=== PATIENT | female | born 1970 | race African-American/Black ===

== ENCOUNTER → 2017-10-02 | Day surgery (SDC) | payer OTHER ==
[~2017-10-02] VITALS: Ht 160 cm; Wt 84.4 kg
[~2017-10-02] MED LIST: COLACE100 M1 PO; CYCLOBENZAPRINE5 M2 PO; HYDROCHLOROTHIA25 M1 PO; LOMOTIL 2.5-0.1 EACH PO; PERCOCET 5-3251 EACH PO; PRILOSEC OTC20 M1 PO; ZOFRAN ODT4 M1 SL
--- NOTE | 2017-10-02 05:46 | ED GI/GU/ABDOMINAL COMPLAINT ---
History of Present Illness General Chief Complaint: General Adult Stated Complaint: "ABD PAIN, +N+V+D" Source: patient Exam Limitations: no limitations Vital Signs & Intake/Output Vital Signs & Intake/Output Vital Signs Date Time Temp Pulse Resp B/P B/P Pulse O2 O2 Flow FiO2 Mean Ox Delivery Rate 10/02 0733 100.0 76 20 132/78 99 Room Air 10/02 0606 98 Room Air 10/02 0542 98.2 94 16 140/84 98 Room Air Room Air Triage Note: 47YO FEMALE TO TRIAGE W/CO ABD PAIN,N,V,D SINCE YESTERDAY AFTERNOON. Triage Nurses Notes Reviewed? yes ? N Is pt currently ? No Duration: day(s): Timing: recent history Quality/Severity: cramping Location: epigastric, generalized abdomen Radiation: no radiation Activities at Onset: eating Prior Abdominal Problems: none Modifying Factors: Worsens With: defecating, palpation, vomiting. Associated Symptoms: abdominal pain, diarrhea, nausea/vomiting HPI: 47 YO WOMAN in prior good health, h/o hypertension, presents with nausea, vomiting, diarrhea since yesterday afternoon. "I ate a roast beef sandwich and everything started after that." She notes no fever, chills, dysuria, chest pain, shortness of breath. She is otherwise well. (Zohaib MORENO,Zeferino Veliz) Allergies Coded Allergies: Penicillins (HIVES 10/02/17) Reconcile Medications Hydrochlorothiazide 25 MG TABLET 1 TAB PO DAILY WATER RETENTION (Reported) (Missy MORENO,Dinh Murphy) Past History Travel History Traveled to [place] past 21 day No Medical History Any Pertinent Medical History? see below for history Neurological: NONE EENT: NONE Cardiovascular: hypertension Respiratory: NONE Gastrointestinal: NONE Hepatic: NONE Renal: NONE Musculoskeletal: NONE Psychiatric: NONE Endocrine: NONE Blood Disorders: NONE Cancer(s): NONE Surgical History Surgical History: none Psychosocial History What is your primary language Mohawk Tobacco Use: Never used Family History Hx Contributory? No (Zohaib MORENO,Zeferino Veliz) Review of Systems Review of Systems Constitutional: Reports: no symptoms. EENTM: Reports: no symptoms. Respiratory: Reports: no symptoms. Cardiovascular: Reports: no symptoms. GI: Reports: no symptoms. Genitourinary: Reports: no symptoms. Musculoskeletal: Reports: no symptoms. Skin: Reports: no symptoms. Neurological/Psychological: Reports: no symptoms. Hematologic/Endocrine: Reports: no symptoms. Immunologic/Allergic: Reports: no symptoms. All Other Systems: Reviewed and Negative (Zohaib MORENO,Zeferino Veliz) Physical Exam Physical Exam General Appearance: well developed/nourished, mild distress Head: atraumatic, normal appearance Eyes: Bilateral: normal appearance. Ears, Nose, Throat, Mouth: hearing grossly normal, moist mucous membrane Neck: normal inspection, supple, full range of motion, normal alignment Respiratory: normal breath sounds, no respiratory distress, quiet respiration, lungs clear Cardiovascular: regular rate/rhythm, JVD, murmur Gastrointestinal: normal bowel sounds, soft, mild mid epigastric tenderness,RUQ TENDERNESS, RLQ TENDERNESS, no rebound. no guarding Back: normal inspection, normal range of motion Extremities: normal range of motion Neurologic/Psych: no motor/sensory deficits, awake, alert, oriented x 3 Skin: intact, normal color, warm/dry Core Measures ACS in differential dx? No Sepsis Present: No Sepsis Focused Exam Completed? No (Zohaib MORENO,Zeferino Veliz) Progress Differential Diagnosis: viral syndrome vs other. Plan of Care: Orders Procedure Date/time Status Patient Data 10/02 916 Active Code Status 10/02 916 Active Add-on Test (ER Only) 10/02 622 Active EKG 10/02 06 Active TROPONIN LEVEL 10/02 06 Complete LIPASE 10/02 0539 Complete HUMAN BETA HCG SCREEN 10/02 05 Complete COMPREHENSIVE METABOLIC PANEL 10/02 538 Complete CBC WITHOUT DIFFERENTIAL 10/02 538 Complete AMYLASE 10/[address] in observation 10/02 UNK Active Current Medications Sig/Cheryl Start time Last Medication Dose Stop Time Status Admin Morphine Sulfate 4 MG ONCE ONE 10/02 929 UNVr (Morphine) 10/02 09 Laboratory Tests 10/02/17 0608: Anion Gap 13, Estimated GFR > 60, BUN/Creatinine Ratio 21.7, Glucose 138 H, Calcium 9.9, Total Bilirubin 0.4, AST 16, ALT 28, Alkaline Phosphatase 72, Troponin I 0.01, Total Protein 7.5, Albumin 4.2, Globulin 3.3, Albumin/Globulin Ratio 1.3, Amylase 69, Lipase 140, Total Beta HCG NEGATIVE, CBC w Diff MAN DIFF ORDERED, RBC 4.32, MCV 73.7 L, MCH 23.9 L, RDW 16.8 H, MPV 8.9, Gran % 82.0 H, Lymphocytes % 12.1 L, Monocytes % 4.4, Eosinophils % 1.3, Basophils % 0.2, Absolute Granulocytes 8.8 H, Segmented Neutrophils 79 H, Absolute Lymphocytes 1.3, Lymphocytes 15 L, Monocytes 3, Absolute Monocytes 0.5, Eosinophils 3, Absolute Eosinophils 0.1, Absolute Basophils 0, Platelet Estimate ADEQUATE, Polychromasia 1+, Hypochromic-Microcytic 2+, Anisocytosis 1+, Microcytic Cells 1 +, Elliptocytes FEW, PUBS MCHC 32.4 L Diagnostic Imaging: Viewed by Me: CT Scan. Discussed w/RAD: CT Scan. Initial ED EKG: BIPHASIC P WAVE, NSR, NO ACUTE CHANGES. Hand-Off Endorsed To: Missy MORENO,Dinh Murphy Endorsed Time: 0700 Pending: CT, labs (Zohaib MORENO,Zeferino Veliz) Radiology Impression: PATIENT: SHAHNAZ MACHADO PRESENT AGE: 47 PATIENT ACCOUNT NO: [id number] : 70 LOCATION: [facility] ORDERING PHYSICIAN: Zeferino Penny MD SERVICE DATE: 10/02/17 EXAM TYPE: CAT - CT ABD & PELVIS W/O IV CONTRAS EXAMINATION: CT ABDOMEN AND PELVIS WITHOUT CONTRAST CLINICAL INFORMATION: Right lower quadrant, right upper quadrant, and mid epigastric pain COMPARISON: None TECHNIQUE: Multidetector volumetric imaging was performed from the superior aspect of the liver through the pubic symphysis. Sagittal and coronal reformatted images were obtained on the technologist's workstation. DLP: 599 mGy-cm FINDINGS: LUNG BASES: Mild right lower lobe atelectasis. Small hiatal hernia. LIVER, GALLBLADDER, AND BILIARY TREE: The unenhanced liver is normal in size, shape, and attenuation. No focal hepatic lesion or biliary ductal dilatation is present. The gallbladder is unremarkable with no evidence of radiopaque gallstones, gallbladder wall thickening, or obvious pericholecystic inflammatory changes. PANCREAS: Unremarkable. SPLEEN: Unremarkable. ADRENAL GLANDS: Unremarkable. KIDNEYS AND URETERS: The kidneys are normal in size, shape, and attenuation. There is a punctate calcification in the lower pole of the left kidney. No hydronephrosis or hydroureter. No perinephric stranding. BLADDER: Unremarkable. GASTROINTESTINAL TRACT: The small and large bowel are unremarkable. The appendix is positioned in the right mid abdomen and is enlarged with periappendiceal fat stranding and a small amount of adjacent free fluid. ABDOMINAL WALL: Tiny fat- containing umbilical hernia. LYMPH NODES: Unremarkable. VASCULAR: Scattered atherosclerotic calcifications of the common iliac arteries. The abdominal aorta is normal in caliber. PELVIC VISCERA: The uterus is enlarged extending up to the level of the umbilicus and is lobulated in contour suggestive of multiple fibroids. OSSEOUS STRUCTURES: Unremarkable. IMPRESSION: Findings compatible with acute appendicitis. The appendix is high in position in the right mid abdomen and is retrocecal. This critical result was discussed with Dr. Louis by telephone on 10/02/2017 7:36 AM and it was ascertained that the content and urgency of the report was understood at the time of direct communication. Small hiatal hernia. Punctate nonobstructive intrarenal calculus in the lower pole of the left kidney. Enlarged uterus with suggestion of multiple fibroids. DICTATED BY: Katelyn Peguero MD DATE/TIME DICTATED:10/02/17722 ANESTHESIOLOGIST/PHYSICIAN: NICKY DATE/TIME TRANSCRIBED:10/02/17722 CONFIDENTIAL, DO NOT COPY WITHOUT APPROPRIATE AUTHORIZATION. <Electronically signed in Other Vendor System> SIGNED BY: Katelyn Peguero MD 10/02/17 0753 (Missy MORENO,Dinh Murphy) Departure Departure Condition: Stable Referrals: Patient Has No Primary Care Dr (PCP/Family) Departure Forms: Customer Survey General Discharge Information Comments 10/02/17, 6:40AM... pt feeling somewhat better after supportive medications, but still with rlq, ruq, mid epigastric pain. pt merits ct scan, fluids. pt signed out to dr. louis at 7am. (Zohaib MORENO,Zeferino Veliz) Departure Disposition: STILL A PATIENT Clinical Impression Primary Impression: Appendicitis Secondary Impressions: Abdominal pain OR/GI Note Spoke With: Deep Lemus DO ED Treatment Decision: SHAHNAZ MACHADO requires urgent operative management or an emergent procedure that cannot be performed in the Emergency Room setting. Transport To: [facility] (Missy MORENO,Dinh Murphy) ED Attending Observation Initial Observation Note: I have seen and personally examined SHAHNAZ MACHADO on 10/02/17 at 0548. I agree with the current emergency department documentation. The disposition (admission or discharge) is uncertain at this time, she needs a period of observation for the following reason(s): The ED Nurse caring for this patient has been personally informed as to what the patient is being observed for. (Zohaib MORENO,Zeferino Veliz) Transport To: [facility] (Missy MORENO,Dinh Murphy) ED Attending Observation Initial Observation Note: I have seen and personally examined SHAHNAZ MACHADO on 10/02/17 at 0548. I agree with the current emergency department documentation. The disposition (admission or discharge) is uncertain at this time, she needs a period of observation for the following reason(s): The ED Nurse caring for this patient has been personally informed as to what the patient is being observed for. (Zohaib MORENO,Zeferino Veliz)
[2017-10-02 06:19] LABS: ABSOLUTE BASOPHIL COUNT 0 /CUMM (0.0-0.2); ABSOLUTE EOSINOPHIL COUNT 0.1 /CUMM (0.0-0.7); ABSOLUTE GRANULOCYTE CT 8.8 /CUMM (1.4-6.5); ABSOLUTE LYMPH COUNT 1.3 /CUMM (1.2-3.4); ABSOLUTE MONOCYTE COUNT 0.5 /CUMM (0.10-0.60); BASOPHIL % 0.2 % (0.0-2.0); EOSINOPHIL % 1.3 % (0-5); HEMATOCRIT 31.8 % (37-47); MEAN CORPUSCULAR HGB 23.9 PG (27.0-31.0); MEAN CORPUSCULAR HGB CONC 32.4 G/DL (33.0-37.0); MEAN CORPUSCULAR VOLUME 73.7 FL (81.0-99.0); MEAN PLATELET VOLUME 8.9 FL (7.4-10.4); PLATELET COUNT 416 /CUMM (130-400); RBC DISTRIBUTION WIDTH 16.8 % (11.5-14.5); RED BLOOD CELL CT 4.32 /CUMM (4.20-5.40); WHITE BLOOD CELL COUNT 10.7 /CUMM (4.8-10.8)
--- NOTE | 2017-10-02 07:57 | CT SCAN REPORT ---
EXAMINATION: CT ABDOMEN AND PELVIS WITHOUT CONTRAST CLINICAL INFORMATION: Right lower quadrant, right upper quadrant, and mid epigastric pain COMPARISON: None TECHNIQUE: Multidetector volumetric imaging was performed from the superior aspect of the liver through the pubic symphysis. Sagittal and coronal reformatted images were obtained on the technologist's workstation. DLP: 599 mGy-cm FINDINGS: LUNG BASES: Mild right lower lobe atelectasis. Small hiatal hernia. LIVER, GALLBLADDER, AND BILIARY TREE: The unenhanced liver is normal in size, shape, and attenuation. No focal hepatic lesion or biliary ductal dilatation is present. The gallbladder is unremarkable with no evidence of radiopaque gallstones, gallbladder wall thickening, or obvious pericholecystic inflammatory changes. PANCREAS: Unremarkable. SPLEEN: Unremarkable. ADRENAL GLANDS: Unremarkable. KIDNEYS AND URETERS: The kidneys are normal in size, shape, and attenuation. There is a punctate calcification in the lower pole of the left kidney. No hydronephrosis or hydroureter. No perinephric stranding. BLADDER: Unremarkable. GASTROINTESTINAL TRACT: The small and large bowel are unremarkable. The appendix is positioned in the right mid abdomen and is enlarged with periappendiceal fat stranding and a small amount of adjacent free fluid. ABDOMINAL WALL: Tiny fat-containing umbilical hernia. LYMPH NODES: Unremarkable. VASCULAR: Scattered atherosclerotic calcifications of the common iliac arteries. The abdominal aorta is normal in caliber. PELVIC VISCERA: The uterus is enlarged extending up to the level of the umbilicus and is lobulated in contour suggestive of multiple fibroids. OSSEOUS STRUCTURES: Unremarkable. IMPRESSION: Findings compatible with acute appendicitis. The appendix is high in position in the right mid abdomen and is retrocecal. This critical result was discussed with Dr. Louis by telephone on 10/02/2017 7:36 AM and it was ascertained that the content and urgency of the report was understood at the time of direct communication. Small hiatal hernia. Punctate nonobstructive intrarenal calculus in the lower pole of the left kidney. Enlarged uterus with suggestion of multiple fibroids.
--- NOTE | 2017-10-02 09:24 | Admission Core Measures ---
Acute Coronary Syndrome (CM) ACS Core Measures Acute Coronary Syndrome Diagnosis No Congestive Heart Failure (NEW) CHF Core Measures Congestive Heart Failure Diagnosis No Cerebrovascular Accident (NEW) CVA Core Measures CVA/TIA Diagnosis No Venous Thromboembolism VTE Core Naye (View Protocol) VTE Risk Factors Surgery No Mechanical VTE Prophylaxis d/t N/A MechProphylax Ordered No VTE Pharm Prophylaxis d/t NA PharmProphylax ordered Problem List As ranked by this Provider includes Assessment & Plan 1. Appendicitis HOME MEDS Home Med List Hydrochlorothiazide 25 MG TABLET 1 TAB PO DAILY WATER RETENTION (Reported)
[2017-10-02 09:29] VITALS: BP 147/85
--- NOTE | 2017-10-02 09:35 | History & Physical Pre-Op ---
Ruma Taylor 10/02/17 0924: General Information and HPI History of Present Illness: 47yoF presents to emergency department for complaints of abdominal pain accompanied with nausea vomiting and diarrhea. Symptoms began last evening and worsened overnight, leading her to seek treatment this morning. She denies fevers or chills at home. She denies sick contacts. Her last meal was dinner last evening, as she didn't begin to feel sick until later last night. At the time of this interview, her pain is much improved after receiving Toradol. She denies chest pain, shortness of breath, palpitations, changes in urination or any other complaints. 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 [employer] Exam & Diagnostic Data Last 24 Hrs of Vital Signs/I&O Vital Signs Date Time Temp Pulse Resp B/P B/P Pulse O2 O2 Flow FiO2 Mean Ox Delivery Rate 10/02 0929 100.0 74 20 147/85 100 Room Air 10/02 0733 100.0 76 20 132/78 99 Room Air 10/02 0606 98 Room Air 10/02 0542 98.2 94 16 140/84 98 Room Air Room Air Intake & Output 10/02 1600 10/02 0800 10/02 0000 Intake Total Output Total Balance Patient 186 lb Weight Physical Exam: GEN- NAD CARD- S1S2 RRR PULM- CTAB ABD- soft, nd, mildly ttp right mid abd, +bs, no r/g EXT- calves soft nt bl Diagnostic Data Other Results 10/02/16 CT AP: Assessment/Plan Assessment/Plan: A- 47F with acute appendicitis, PMHx HTN, stable. P- -OCTOR for lap appy -NPO, IVF, veronica/flagyl, prn iv pain meds, prn antiemetics -Dr. Lemus to see pt, obtain consent -full code -pt aware & agrees w plan -observation status As Ranked By This Provider Problem List: 1. Appendicitis Mariah Deep SKELTON 10/02/17 1336: Attending MD Review Statement Attending Statement Attending MD Statement: examined this patient, discuss w/resident/PA/SHUTTLECOCK ASSEMBLER, agreed w/resident/PA/SHUTTLECOCK ASSEMBLER, discussed with family, reviewed EMR data (avail), reviewed images Attending Assessment/Plan: Patient seen and examined, agree with above. Abdominal pain since last night. Now more in the right side and increase severity. +N/V/anorexia. ROS is all negative aside for the above mentioned pertinent positives. Tm 100 VSS. Abd- soft, + right sided tenderness. Labs ok. CT scan - acute appendicitis, retrocecal appendix, large uterus with fibroids. Patient to be NPO/IVF/IV Abx, plan for Lap Appy today. D/W patient, family, and ED staff.
--- NOTE | 2017-10-02 13:48 | Operative Report ---
Operative/Inv Procedure Report Surgery Date: 10/02/17 Name of Procedure: Laparoscopic appendectomy Pre-Operative Diagnosis: Acute appendicitis Post-Operative Diagnosis: Same Estimated Blood Loss: less than 50ml Surgeon/Health Researcher: Deep Ward Anesthesia: general endotracheal tube IV Fluids: 1000 cc Drains: None Specimens: Appendix Complications: None Condition: Stable Operative Indication: This is a 47-year-old female who presented to the emergency room with abdominal pain. After appropriate workup was completed the patient was diagnosed with acute appendicitis. A laparoscopic possible open appendectomy was discussed in detail. All risks including but not limited to bleeding, infection, and injury to surrounding bowel were discussed in detail. The patient understood everything and decided to proceed. Operative/Procedure Note Note: The patient was brought to the operating room and placed on the table in supine position. Venodyne stockings were placed and adequate general endotracheal anesthesia was obtained. The patient was prepped and draped in standard surgical fashion. Began the procedure by making a 2 cm midline incision above the umbilicus. Location of the incision was due to the large uterus seen on CT. Incision was carried down to the fascia. Once the fascia was clearly visualized it was picked up between 2 Brandy clamps and divided in the midline. Once we entered the peritoneum 2 stay Vicryl sutures were placed on each side and a 12 mm blunt port was inserted. The abdominal cavity was insufflated to 15 mmHg. And a 10 mm 30 laparoscope was introduced. Upon initial examination no obvious gross pathology was seen, some hyperemia and inflammatory reaction was noted in the right lower quadrant. A very large uterus with multiple fibroids was noted extending to the umbilicus. Accessory trocars were placed, both 5 mm, one in the left lower quadrant and one suprapubic. Ascending colon was identified and traced proximally, terminal ileum was identified, and we did note the appendix coursing in a retrocecal fashion. The base of the appendix was identified and appeared healthy. Distal appendix was markedly inflamed and thickened and adhered to the sidewall and to the omentum. Using blunt dissection and harmonic scalpel the appendix was carefully dissected away from surrounding structures. Once the appendix was away from the omentum and the sidewall the mesoappendix was divided using Harmonic scalpel maintaining hemostasis until the appendiceal base was clearly visualized and freely up in the air. At that point we switched to a 5 mm laparoscope and a 45 mm lebron Endo WILLIAM load was inserted and the base was transected. The appendix was placed in an Endobag and removed through the umbilical trocar site. The abdominal cavity was reinsufflated and we switched back to a 10 mm laparoscope. Staple line was examined and no bleeding was noted. No other abnormalities were noted. The pelvis and the right lower quadrant were irrigated until clear. Could not visualize the whole pelvis due to the large uterus. All ports were removed under direct visualization, no obvious bleeding was noted. The umbilical trocar site was closed using 0 Vicryl suture. The skin was closed using 4-0 Monocryl. Steri-Strips and dressings were placed. The patient was successfully extubated and transferred to the recovery room in stable condition. The patient tolerated procedure well with no complications. Findings: Retrocecal appendix, suppurative, non-perforated, large uterus with multiple fibroids going up to the navel
--- NOTE | 2017-10-02 13:56 | Patient Discharge Instructions ---
Discharge Instructions General Discharge Information You were seen/treated for: ACUTE APPENDICITIS You had these procedures: LAPAROSCOPIC APPENDECTOMY (10/02/17) Watch for these problems: FEVER>101.3, INCREASED PAIN, REDNESS/SWELLING/DRAINAGE No bath, but you may shower: Yes Other wound care: OK TO REMOVE BANDAIDS IN 24 HOURS. LEAVE WHITE STERI STRIPS IN PLACE. KEEP INCISIONS CLEAN & DRY. Diet Continue normal diet: Yes Recommended Diet: Regular Activity Full Activity/No Limits: No Activity Self Limited: Yes Pounds, do NOT lift more than: 10 Other activity limits: NO HEAVY LIFTING. NO STRENUOUS ACTIVITY. Additional ACTIVITY Info: WALK FREQUENTLY Acute Coronary Syndrome Inclusion Criteria At DC or during hospital stay patient has or had the following: ACS DIAGNOSIS No Discharge Core Measures Meds if any: Prescribed or Continued at Discharge Meds if any: NOT Prescribed or Continued at Discharge Congestive Heart Failure Inclusion Criteria At DC or during hospital stay patient has or had the following: CHF DIAGNOSIS No Discharge Core Measures Meds if any: Prescribed or Continued at Discharge Meds if any: NOT Prescribed or Continued at Discharge Cerebrovascular accident Inclusion Criteria At DC or during hospital stay patient has or had the following: CVA/TIA Diagnosis No Discharge Core Measures Meds if any: Prescribed or Continued at Discharge Meds if any: NOT Prescribed or Continued at Discharge Venous thromboembolism Inclusion Criteria VTE Diagnosis No VTE Type NONE VTE Confirmed by (Test) NONE Discharge Core Measures - Per Current guidelines, there needs to be overlap - treatment for the first 5 days of Warfarin therapy. - If discharged on Warfarin prior to 5 days of - overlap therapy, the patient will need to be - assessed for post discharge needs including - *Post discharge parental anticoagulation - *Warfarin and/or parental anticoagulation education - *Follow up date to check INR post discharge At least 5 days overlap therapy as Inpatient No Meds if any: Prescribed or Continued at Discharge Note: Overlap Therapy is Warfarin and Anticoagulant Meds if any: NOT Prescribed or Continued at Discharge
== END ==
LOC: ERH 05:30 → ER-OR 05:36 → CANBEDREQ 09:42 → STS 10:19
PROVIDERS: Pediatrics
DX: K35.80 Unspecified acute appendicitis (principal); N85.2 Hypertrophy of uterus; D25.9 Leiomyoma of uterus, unspecified; I10 Essential (primary) hypertension
CPT/HCPCS: 74176; 88304; 93005; 93010; 96361; 96365; 96375; J0131; J0696; J1885; J2250; J2405; J3010